=== PATIENT | male | born 1950 | race Caucasian/White ===

== ENCOUNTER 2016-10-23 10:31 | Emergency (ER) | payer BC ==
[~2016-10-23] VITALS: Ht 172.7 cm; Wt 105.0 kg
[~2016-10-23 10:31] MED LIST: ADULT LOW DOSE81 M1 PO; Bactrim,Septra DS 80 PO; FLEXERIL10 MG PO; Flexeril PO; Glucotrol XL PO; Lopressor PO; NEURONTIN600 MG PO; OXYCODONE5 MG PO; PRAVACHOL40 MG PO; Percocet 5/325,Endoc PO; VOLTAREN75 MG PO; Zestril,Prinivil PO
[2016-10-23 11:02] LABS: HEMATOCRIT 40.6 % (38.0-50.0); MCH 29.9 PG (29.0-34.0); MCV 87.9 FL (86-99); MEAN PLAT.VOLUME 11.1 uM^3 (9.0-12.4); PLATELET COUNT 262 K/uL (156-360); RBC DIS.WIDTH-CV 12.6 % (11.8-14.6); RBC DIS.WIDTH-SD 39.3 % (39-53); RED BLOOD COUNT 4.62 M/uL (4.00-5.50); WHITE BLOOD COUNT 6.9 K/uL (4.1-10.2)
[2016-10-23 11:20] LABS: ADD MIUA? YES; BILIRUBIN NEGATIVE; BLOOD LARGE; COLOR STRAW ((YELLOW)); GLUCOSE (STRIP) 50; KETONES NEGATIVE; LEUKOCYTES NEGATIVE; NITRITE NEGATIVE; PROTEIN (STRIP) NEGATIVE; SPECIFIC GRAVITY 1.013 (1.000-1.030); UROBILINOGEN 0.2 MG/DL (0.2-1.0)
[2016-10-23 11:23] LABS: BACTERIA NONE SEEN /HPF; EPITHELIAL CELLS NONE SEEN /HPF; MUCUS TRACE /LPF; RED BLOOD CELLS TNTC /HPF (0-5); UCUL ADDED? NO; WHITE BLOOD CELLS 0-5 /HPF (0-5)
[2016-10-23 11:37] LABS: CHLORIDE 107 mEq/L (99-109); POTASSIUM 4.7 mEq/L (3.7-5.4); SODIUM 140 mEq/L (136-147)
[2016-10-23 11:39] LABS: GLUCOSE 74 mg/dL (70-99)
[2016-10-23 11:40] LABS: ANION GAP 9 MEQ/L (2-14)
[2016-10-23 11:43] LABS: GFR ESTIMATE (CALCULATED) > 59 mL/min/
[2016-10-23 11:44] LABS: UREA NITROGEN (BUN) 17 mg/dL (9-23)
[2016-10-23 13:27] VITALS: BP 145/90
== END 2016-10-23 13:29 | disposition home or self-care (01) ==
LOC: EME 10:31
PROVIDERS: Emergency Medicine
DX: R00.1 Bradycardia, unspecified (principal); R31.9 Hematuria, unspecified; R42 Dizziness and giddiness; R51 Headache; R10.9 Unspecified abdominal pain; R11.0 Nausea; I10 Essential (primary) hypertension; E11.9 Type 2 diabetes mellitus without complications; G89.29 Other chronic pain; Z79.891 Long term (current) use of opiate analgesic; Z87.442 Personal history of urinary calculi
CPT/HCPCS: 80048; 81003; 85027; 93005; 99281; 99285; J7030